=== PATIENT | female | born 1985 | race Caucasian/White ===

== ENCOUNTER → 2016-09-03 | Outpatient (CLI) | payer OTHER | LOC: KOH-I 09:08 | DX: M25.511 Pain in right shoulder (principal) | CPT/HCPCS: 73030 ==

== ENCOUNTER 2020-06-20 12:09 | Emergency (ER) | payer OTHER ==
[~2020-06-20 12:09] MED LIST: AUGMENTIN 875-1 EACH PO; PYRIDIUM100 MG PO; ZOFRAN ODT 4 MG4 MG SL; ZOFRAN4 MG PO
[2020-06-20 12:40] LABS: HEMOGLOBIN 16.1 gm/dl (12.3-15.3); RED BLOOD COUNT 5.04 M/UL (4.00-5.10); WHITE BLOOD COUNT 8.9 K/UL (4.5-11.0)
[2020-06-20 13:03] LABS: BUN/CREATININE RATIO 18 (0-10)
== END 2020-06-20 15:52 | disposition home or self-care (01) ==
LOC: ER1 12:09
PROVIDERS: Emergency Medicine
DX: R00.2 Palpitations (principal); R07.89 Other chest pain; F17.200 Nicotine dependence, unspecified, uncomplicated; Z88.1 Allergy status to other antibiotic agents; Z79.899 Other long term (current) drug therapy
CPT/HCPCS: 36415; 71045; 80053; 81001; 82150; 83690; 84439; 84443; 84484; 84703; 85025; 85379; 93005; 96374; 99285

== ENCOUNTER → 2020-08-01 | Outpatient (CLI) | payer OTHER | LOC: HEART 5 07-14 11:00 | DX: R07.9 Chest pain, unspecified (principal); I34.0 Nonrheumatic mitral (valve) insufficiency | CPT/HCPCS: 93306 ==

== ENCOUNTER 2020-12-16 12:55 | Emergency (ER) | payer OTHER ==
[2020-12-16 15:14] LABS: HEMOGLOBIN 15.4 gm/dl (12.3-15.3); RED BLOOD COUNT 4.88 M/UL (4.00-5.10); WHITE BLOOD COUNT 5.7 K/UL (4.5-11.0)
[2020-12-16 15:44] LABS: BUN/CREATININE RATIO 11 (0-10)
== END 2020-12-16 15:15 | disposition left against medical advice (07) ==
LOC: ER1 12:55
PROVIDERS: Physician Assistant
DX: R07.9 Chest pain, unspecified (principal); R42 Dizziness and giddiness; F17.200 Nicotine dependence, unspecified, uncomplicated; Z88.8 Allergy status to other drugs, medicaments and biological substances
CPT/HCPCS: 80053; 82550; 82553; 84484; 85025; 85379; 93005; 99285